=== PATIENT | male | born 1945 | race Caucasian/White ===

== ENCOUNTER → 2018-09-02 | Outpatient (CLI) | payer MEDICARE, OTHER ==
--- NOTE | 2018-09-02 14:32 | KCIC ---
MR of the right shoulder HISTORY: Right shoulder pain. Pain is chronic. TECHNIQUE: Routine multiplanar sequences are obtained. FINDINGS: There is mild motion degradation. The acromioclavicular joint is degenerative with mild undersurface mass effect. Rotator cuff tendinosis signal. Signal along the undersurface of the posterior supraspinatus tendon and infraspinatus tendon compatible with partial tearing of the 60% deep. No evidence of full-thickness rupture of the rotator cuff. Mild bursal surface fraying or irregularity. Subscapularis tendinosis without high-grade tear. Trace subdeltoid bursal effusion. No significant glenohumeral joint effusion. Mild degenerative change identified at the glenohumeral joint. There is mild signal within the superior labrum no definite labral tear. The biceps tendon demonstrates tendinosis and partial tearing. There is no aggressive bone destruction or acute fracture. No evidence of acute soft tissue abnormality. IMPRESSION: 1. Rotator cuff tendinosis. There is partial thickness undersurface tearing of the supraspinatus infraspinatus tendon, up to 60%. No evidence of full-thickness rupture. 2. Biceps tendinosis with partial tearing. 3. Mild signal within the superior labrum compatible with degeneration. Electronically signed by: Preston David MD (09/02/2018 2:29 PM) [id number]
== END | disposition home or self-care (01) ==
LOC: KCIC MRI 11:15
PROVIDERS: ATTEND Nurse Practitioner Family
DX: S46.011A Strain of muscle(s) and tendon(s) of the rotator cuff of right shoulder, initial encounter (principal); M25.411 Effusion, right shoulder; M75.91 Shoulder lesion, unspecified, right shoulder; M19.011 Primary osteoarthritis, right shoulder; G89.29 Other chronic pain; X58.XXXA Exposure to other specified factors, initial encounter; Y93.89 Activity, other specified; Y92.89 Other specified places as the place of occurrence of the external cause; Y99.8 Other external cause status
CPT/HCPCS: 73221